=== PATIENT | female | born 1975 | race Asian ===

== ENCOUNTER 2024-08-31 15:15 | Inpatient (IN) | payer OTHER ==
[~2024-08-31] VITALS: Ht 157.5 cm; Wt 79.4 kg
[2024-08-31 15:59] LABS: BASOPHILS % 0.4 % (0.0-2.0); EOSINOPHILS % 1.6 % (0.0-5.0); HEMATOCRIT. 37.3 % (36.0-48.0); HEMOGLOBIN. 12.9 g/dL (12.0-16.0); LYMPHOCYTES % 23.5 % (20.0-50.0); MEAN CORPUSCULAR HEMOGLOBIN 30.2 pg (28.0-32.0); MEAN CORPUSCULAR HGB CONC 34.5 g/dL (31.0-37.0); MEAN CORPUSCULAR VOLUME 87.6 fL (81.0-99.0); MEAN PLATELET VOLUME 7.3 fl (7.4-10.4); MONOCYTES % 4.9 % (2.0-8.0); NEUTROPHILS % 69.6 % (40.0-76.0); PLATELET 258 x1000/uL (130-400); RED BLOOD CELL COUNT 4.26 mill/uL (4.2-5.4); RED CELL DISTRIBUTION WIDTH 13.2 % (11.6-14.6); WHITE BLOOD COUNT 9.5 x1000/uL (4.5-11.0)
[2024-08-31 16:05] LABS: HCG SCREEN NEGATIVE
[2024-08-31 16:07] LABS: CHLORIDE 109 mEq/L (98-107); POTASSIUM 3.9 mEq/L (3.5-5.1); SODIUM 139 mEq/L (136-145)
[2024-08-31 16:08] LABS: CALCIUM 8.3 mg/dL (8.7-10.4); CARBON DIOXIDE 23 mEq/L (21-32)
[2024-08-31 16:09] LABS: INR 0.9; PROTHROMBIN TIME 10.5 sec (9.6-11.0)
[2024-08-31 16:13] LABS: GLUCOSE 219 mg/dL (70-105); UREA NITROGEN BLOOD 16 mg/dL (9-23)
[2024-08-31 16:20] LABS: TROPONIN I HIGH SENSITIVITY 52 ng/L (3.0-34)
[2024-08-31] MEDS: ASPIRIN 325MG EC TABLET PO ONE (16:45)
[2024-08-31] MEDS: CLOPIDOGREL 75MG TABLET PO ONE (16:45)
[2024-08-31] MEDS ORDERED: NITROGLYCERIN 0.4MG TABLET SL SL PRN (19:30)
[2024-08-31] MEDS ORDERED: MAGNESIUM/ALUMINUM HYDROXIDE/SIMETHICONE 30ML UDC PO PRN (19:30)
[2024-08-31] MEDS ORDERED: DOCUSATE SODIUM 100MG CAPSULE PO PRN (19:30)
[2024-08-31] MEDS ORDERED: KETOROLAC 15MG/ML VIAL IV PRN (19:30)
[2024-08-31] MEDS ORDERED: CLONIDINE 0.1MG TABLET PO PRN (19:30)
[2024-08-31] MEDS ORDERED: GUAIFENESIN 200MG/10ML SUGAR FREE UDC PO PRN (19:30)
[2024-08-31] MEDS ORDERED: ACETAMINOPHEN 325MG TABLET PO PRN ×2 (19:30)
[2024-08-31] MEDS ORDERED: IPRATROPIUM/ALBUTEROL 0.5-3(2.5)MG/3ML NEB NEB PRN (19:30)
[2024-08-31] MEDS ORDERED: ZOLPIDEM TARTRATE 5MG TABLET PO PRN (21:00)
[2024-08-31] MEDS: FAMOTIDINE 20MG TABLET PO SCH (21:05)
[2024-08-31] MEDS: ENOXAPARIN 40MG/0.4ML SYR SUBCUT SCH (21:07)
[2024-08-31 21:13] LABS: LDL CHOLESTEROL 49 mg/dL (5-100); TRIGLYCERIDE 46 mg/dL (0-150)
[2024-08-31 21:14] LABS: HDL CHOLESTEROL 42 mg/dL (>65); LACTATE DEHYDROGENASE 273 IU/L (120-246)
[2024-08-31 21:15] LABS: CHOLESTEROL 100 mg/dL (<200)
[2024-08-31 21:17] LABS: T4 FREE 1.16 ng/dL (0.89-1.76); THYROID STIMULATING HORMONE 0.98 uIU/mL (0.55-4.78)
[2024-08-31 21:20] LABS: ETHANOL BLOOD < 10 mg/dL (<10); TROPONIN I HIGH SENSITIVITY 309 ng/L (3.0-34)
[2024-08-31 22:45] LABS: *AMPHETAMINES SCREEN URINE NEGATIVE (NEGATIVE); *BARBITURATES SCREEN URINE NEGATIVE (NEGATIVE); *BENZODIAZEPINES SCREEN URINE NEGATIVE (NEGATIVE); *COCAINE SCREEN URINE NEGATIVE (NEGATIVE); CANNABINOID URINE SCREEN NEGATIVE (NEGATIVE); ECSTASY MDMA SCREEN URINE NEGATIVE (NEGATIVE); METHADONE URINE SCREEN NEGATIVE (NEGATIVE); OPIATES URINE SCREEN NEGATIVE (NEGATIVE); PHENCYCLIDINE URINE SCREEN NEGATIVE (NEGATIVE)
[2024-08-31] MEDS ORDERED: DEXTROSE 50% WATER 50ML SYRINGE IV PRN (23:15)
[2024-08-31] MEDS: ONDANSETRON HCL 4MG/2ML INJ IV PRN (23:24)
[2024-09-01] MEDS: ENOXAPARIN 30MG/0.3ML SYR SUBCUT NR (00:02)
[2024-09-01 06:33] LABS: CHLORIDE 108 mEq/L (98-107); POTASSIUM 4.1 mEq/L (3.5-5.1); SODIUM 139 mEq/L (136-145)
[2024-09-01 06:34] LABS: CALCIUM 8.9 mg/dL (8.7-10.4); CARBON DIOXIDE 26 mEq/L (21-32)
[2024-09-01 06:38] LABS: BASOPHILS % 0.3 % (0.0-2.0); CREATINE KINASE MB FRACTION 3.4 ng/mL (0.5-3.6); EOSINOPHILS % 0.9 % (0.0-5.0); HEMATOCRIT. 38.9 % (36.0-48.0); HEMOGLOBIN. 13.1 g/dL (12.0-16.0); LYMPHOCYTES % 28.5 % (20.0-50.0); MEAN CORPUSCULAR HEMOGLOBIN 29.9 pg (28.0-32.0); MEAN CORPUSCULAR HGB CONC 33.7 g/dL (31.0-37.0); MEAN CORPUSCULAR VOLUME 88.9 fL (81.0-99.0); MEAN PLATELET VOLUME 7.8 fl (7.4-10.4); MONOCYTES % 5.5 % (2.0-8.0); NEUTROPHILS % 64.8 % (40.0-76.0); PLATELET 282 x1000/uL (130-400); RED BLOOD CELL COUNT 4.37 mill/uL (4.2-5.4); WHITE BLOOD COUNT 10.8 x1000/uL (4.5-11.0)
[2024-09-01 06:39] LABS: GLUCOSE 113 mg/dL (70-105); UREA NITROGEN BLOOD 10 mg/dL (9-23)
[2024-09-01 06:41] LABS: ALANINE AMINOTRANSFERASE 32 IU/L (10-49); ALBUMIN 3.7 g/dL (3.2-4.8); ASPARTATE AMINOTRANSFERASE 28 IU/L (<34); CREATINE KINASE 142 IU/L (34-145); PHOSPHORUS 3.3 mg/dL (2.5-4.9)
[2024-09-01 06:42] LABS: BILIRUBIN TOTAL 0.5 mg/dL (0.1-1.0); PROTEIN TOTAL 6.5 g/dL (6.0-8.3)
[2024-09-01] MEDS: INSULIN LISPRO 100 UNITS/ML SUBCUT SCH (07:15)
[2024-09-01] MEDS: BLOOD SUGAR DIAGNOSTIC STRIP TEST SCH (07:41)
[2024-09-01 08:32] LABS: TROPONIN I HIGH SENSITIVITY 102 ng/L (3.0-34)
[2024-09-01] MEDS: ASPIRIN 325MG EC TABLET PO SCH (09:17)
[2024-09-01] MEDS: ENOXAPARIN 80MG/0.8ML SYR SUBCUT SCH (10:19)
[2024-09-01 11:52] VITALS: BP 125/74; PULSE 75; RESP 18; TEMP 36.50292; O2SAT 100
[2024-09-01 12:00] VITALS: BP 125/74; PULSE 75; RESP 18; TEMP 36.50292; O2SAT 100
[2024-09-01 13:03] LABS: CREATINE KINASE MB FRACTION 2.9 ng/mL (0.5-3.6)
[2024-09-01 14:47] VITALS: BP 125/74; PULSE 75; RESP 18; TEMP 36.5292
[2024-09-01 15:56] VITALS: BP 116/71; PULSE 58; RESP 20; TEMP 36.55848; O2SAT 98
[2024-09-01 17:07] LABS: FOLIC ACID (FOLATE) SERUM 19.58 ng/mL (>5.38); VITAMIN B12 SERUM 407 pg/mL (211-911)
[2024-09-01 20:00] VITALS: BP 119/78; PULSE 65; TEMP 97.2; O2SAT 99
[2024-09-02] MEDS ORDERED: ASPIRIN 81MG TABLET PO SCH (09:00)
== END 2024-09-01 20:45 | disposition short-term general hospital (02) | DRG 282 ==
LOC: ER 15:15 → 5WST 18:05 → EDBEDREQTM 21:33 → EDBEDREQ 21:33 → 7EST 09-01 11:44
PROVIDERS: ADMIT Internal Medicine; ATTEND Internal Medicine
DX: R55 Syncope and collapse (principal); I21.A1 Myocardial infarction type 2; E11.9 Type 2 diabetes mellitus without complications; E78.00 Pure hypercholesterolemia, unspecified; Q23.81 Bicuspid aortic valve
CPT/HCPCS: 36415; 71045; 80048; 80053; 80061; 80305; 80320; 82550; 82553; 82607; 82746; 82962; 83036; 83615; 83735; 83880; 84100; 84439; 84443; 84484; 84703; 85025; 93005; 93970; 99291; J1650; J1815; J2405; G0480